=== PATIENT | male | born 1975 | race African-American/Black ===

== ENCOUNTER 2016-04-27 15:16 | Emergency (ER) | payer SELFPAY ==
[~2016-04-27] VITALS: Ht 175.3 cm; Wt 74.8 kg
[2016-04-27] MEDS ORDERED: traMADol 50mg tab ORAL ONE (15:30)
--- NOTE | 2016-04-27 16:57 | Emergency Room Report ---
History of Present Illness General Chief Complaint: Lower Back Pain or Injury Source: EMS (RICHY [email or web address].ASony) Present Illness HPI The pt is a 40 yo M BIBA who states he has a Hx of paraplegia presenting for lower back pain. The pain is said to be a 10/10 dull ache and does not radiate. Although the patient admits to this history, he was seen walking to and from the restroom without difficulty. The pt has not tried any medications for the pain. No known injury to cause the onset of pain. The pt denies any other symptoms. (RICHY LOO P.A.) Allergies: Coded Allergies: No Known Allergies (Unverified , 04/27/16) Patient History Past Medical History: see triage record Pertinent Family History: none Reviewed Nursing Documentation: PMH: Agreed, PSxH: Agreed (RICHY LOO.[place]) Nursing Documentation-PMH Past Medical History: No Stated History (RICHY LOO.[place]) Review of Systems All Other Systems: negative except mentioned in HPI (RICHY LOO P.ASony) Physical Exam Vital Signs Date Time Temp Pulse Resp B/P Pulse Ox O2 Delivery O2 Flow Rate FiO2 04/27/16 15:11 98.8 95 16 140/80 97 Sp02 EP Interpretation: reviewed, normal General Appearance: no apparent distress, alert, GCS 15, non-toxic Head: normocephalic, atraumatic Eyes: bilateral eye PERRL, bilateral eye normal inspection Gastrointestinal: normal bowel sounds, non tender, soft, non-distended, no guarding, no rebound Rectal: deferred Genitourinary: normal inspection, no CVA tenderness Musculoskeletal: gait/station normal, normal range of motion, tender Neurologic: alert, oriented x3, responsive, motor strength/tone normal, sensory intact, speech normal Psychiatric: judgement/insight normal, memory normal, mood/affect normal, no suicidal/homicidal ideation Reflexes: 3+ bicep (R), 3+ bicep (L), 3+ tricep (R), 3+ tricep (L), 3+ knee (R) , 3+ knee (L) Skin: warm/dry, normal turgor Lymphatic: no adenopathy (RICHY LOO P.ASony) Medical Decision Making PA Attestation Dr. Hughes is my supervising physician. Patient management was discussed with my supervising physician (RICHY LOO) Medicare Attestation Please note that the patient had verbalized to our physician litigation legal assistant that he was paraplegic However the patient was visualized by myself standing from the residential property manager gurney , and walking, while stating that he had low back pain and required laying down instead of sitting in a chair. Patient was also provided consultation with social work (PATRICA HUGHES D.O.) Diagnostic Impression: Primary Impression: Low back pain ER Course The pt is a 40 yo M BIBA who states he has a Hx of paraplegia presenting for lower back pain. Ddx considered include but not limited to lumbar strain, degenerative disease, chronic pain, narcotic dependency, fracture, disc herniation PE:Vitals WNL. NAD. Resting on the gurney. A&Ox3. There is + midline lumbar TTP as well as paraspinal tenderness. SILT. Pt freely moving both upper and lower extremities during exam. The pt is given tramadol for pain. The pt declines CT scan multiple times because he would like to sleep. The pt is UT'ed with prescription for motrin and is given ER precautions. Pt ambulates without difficulty. (RICHY LOO) Last Vital Signs Date Time Temp Pulse Resp B/P Pulse Ox O2 Delivery O2 Flow Rate FiO2 04/27/16 16:34 98.8 04/27/16 15:11 95 16 140/80 97 Status: improved (RICHY LOO) Disposition: HOME, SELF-CARE Condition: Improved Scripts Ibuprofen* (MOTRIN*) 600 Mg Tablet 600 MG ORAL Q8H Y for For Pain, #30 TAB 0 Refills Prov: RICHY LOO 04/27/16 Referrals: NOT CHOSEN IPA/,REFERRING (PCP) RICHY LOO Apr 27, 2016 16:57 PATRICA HUGHES D.O. Apr 27, 2016 17:29
[2016-04-27] MEDS ORDERED: IBUPROFEN600 MG ORAL (17:13)
[2016-04-27 18:14] VITALS: BP 140/80
== END 2016-04-27 18:17 | disposition home or self-care (01) ==
LOC: EDBD 15:16 → EMR 15:45
DX: M54.5 Low back pain (principal); G82.20 Paraplegia, unspecified
CPT/HCPCS: 99282